=== PATIENT | male | born 1985 | race African-American/Black ===

== ENCOUNTER 2021-10-17 12:15 | Emergency (ER) | payer OTHER ==
[~2021-10-17] VITALS: Ht 188 cm; Wt 99.0 kg
[2021-10-17 12:30] VITALS: BP 124/74
[2021-10-17] MEDS ORDERED: FAMOTIDINE 20MG TABLET PO ONE (14:15)
[2021-10-17] MEDS ORDERED: PREDNISONE 20MG TABLET PO ONE (14:15)
[2021-10-17] MEDS ORDERED: FAMO-135 MT (15:10)
[2021-10-17] MEDS ORDERED: P20 MT (15:10)
[2021-10-17] MEDS ORDERED: DIPH25CA83 MT (15:10)
== END 2021-10-17 15:31 | disposition home or self-care (01) ==
LOC: ER 12:15
DX: T78.49XA Other allergy, initial encounter (principal); X58.XXXA Exposure to other specified factors, initial encounter; K64.9 Unspecified hemorrhoids; Y93.89 Activity, other specified; Y92.018 Other place in single-family (private) house as the place of occurrence of the external cause
CPT/HCPCS: 99283; J7512

== ENCOUNTER 2021-10-22 04:42 | Emergency (ER) | payer OTHER ==
[~2021-10-22] VITALS: Ht 190.5 cm; Wt 76.0 kg
[~2021-10-22 04:42] MED LIST: DIPH25CA83 MT; FAMO-135 MT; P20 MT
[2021-10-22 04:50] VITALS: BP 118/103
[2021-10-22 05:54] LABS: CHLORIDE 111 mEq/L (98-107)
[2021-10-22 06:13] LABS: BASOPHILS % 0.5 % (0.0-2.0); EOSINOPHILS % 1.7 % (0.0-5.0); HEMATOCRIT. 37.1 % (42.0-52.0); HEMOGLOBIN. 12.4 g/dL (14.0-18.0); LYMPHOCYTES % 32.4 % (20.0-50.0); MEAN CORPUSCULAR HEMOGLOBIN 29.2 pg (28.0-32.0); MEAN CORPUSCULAR VOLUME 87.4 fL (80.0-94.0); MEAN PLATELET VOLUME 9.6 fl (7.4-10.4); NEUTROPHILS % 53.4 % (40.0-76.0); PLATELET 175 x1000/uL (130-400); RED BLOOD CELL COUNT 4.24 mill/uL (4.7-6.1); RED CELL DISTRIBUTION WIDTH 15.2 % (11.6-14.6)
== END 2021-10-22 08:39 | disposition home or self-care (01) ==
LOC: ER 04:42
DX: R60.0 Localized edema (principal); R14.0 Abdominal distension (gaseous); R79.89 Other specified abnormal findings of blood chemistry
CPT/HCPCS: 36415; 80048; 83880; 85025; 99283